=== PATIENT | male | born 1995 | race Caucasian/White ===

== ENCOUNTER → 2018-07-21 | Outpatient (CLI) | payer BC, SELFPAY ==
--- NOTE | 2018-07-21 11:58 | CT_ITS ---
STUDY: CT ABDOMEN AND PELVIS WITH CONTRAST REASON FOR EXAM: Male, 23 years old. 4 day history of a lower pelvic pain. RADIATION DOSAGE (If Supplied By Facility): CTDIvol = ( 10.39 ) mGy, DLP = ( 574.93 ) mGycm TECHNIQUE: Transaxial images were obtained from the dome of the diaphragm to the symphysis pubis with oral contrast. 100 IV/Oral Isovue 300 was administered. Sagittal and coronal images were reconstructed. Individualized dose optimization techniques were used for this CT. COMPARISON: Comparison is made with prior study dated January 06, 2016. FINDINGS: The visualized lung bases are unremarkable. The visualized portions of the heart are within normal limits. Normal liver. Normal gallbladder and extrahepatic biliary system. Normal spleen. Normal pancreas. Normal bilateral adrenal glands. Normal right kidney. Normal left kidney. Normal visualized stomach. Normal small intestine. Normal colon. There are surgical clips in the region of the appendix consistent with a prior appendectomy. Normal abdominal aorta. Normal inferior vena cava. Normal retroperitoneum. Normal urinary bladder. Inhomogeneous appearance of the seminal vesicles bilaterally. Clinical correlation is recommended. Normal abdominal wall. Normal osseous structures. CT/Abdomen/Pelvis WITH Contrast IMPRESSION: Inhomogeneous appearance of the seminal vesicles bilaterally. Clinical correlation is recommended. Electronically Signed: Harish Escalante, at 14:16 EDT , Service support ,
[2018-07-21 12:54] LABS: Absolute Lymphocyte Count 1.64 X10^3/ul (0.83-4.51); Basophil# 0.02 X10^3/uL; Basophil% 0.3 % (0-1); Eosinophil# 0.22 X10^3/uL; Eosinophils% 3.4 % (0-5); Hematocrit 50.4 % (40-54); Lymphocyte # 1.64 X10^3/ul (4.0); Lymphocyte % 25.3 % (19-41); Mean Corp Hgb Conc 33.7 g/gl (32-36); Mean Corpuscular Hgb 30.2 pg (27.0-32.0); Mean Corpuscular Volume 89.7 fL (80-94); Mean Platelet Vol. 9.7 fl (6.2-12.0); Monocyte# 0.61 X10^3/uL; Monocyte% 9.4 % (0-10); Neutrophil # 3.96 X10^3/uL (2.7-7.7); Neutrophil % 61.1 % (47-70); Platelet Count 262 K/mm3 (150-450); RBC Distribution Width CV 12.8 % (11.6-14.6); RBC Distribution Width SD 42.1 fl (35.1-43.9); Red Blood Count 5.62 M/mm3 (4.6-6.2); White Blood Count 6.5 K/mm3 (4.4-11.0)
[2018-07-21 12:55] LABS: POSITIVE COUNT NO; POSITIVE DIFFERENTIAL NO; POSITIVE MORPHOLOGY NO
== END | disposition home or self-care (01) ==
PROVIDERS: Family Provider Family Medicine; PCP Family Medicine; Referring Provider Family Medicine; Visit Provider Family Medicine
DX: R10.9 Unspecified abdominal pain (principal)
CPT/HCPCS: 36415; 74177; 85025; Q9967

== ENCOUNTER 2019-02-15 17:58 | Emergency (ER) | payer BC, SELFPAY ==
[2019-02-15 17:59] VITALS: BP 141/80; PULSE 138; RESP 18; TEMP 36.7; O2SAT 96; BMI 26.5
[2019-02-15 18:56] VITALS: RESP 16
[2019-02-15 18:59] LABS: Mucous, Urine 0 SEEN /hpf (<or=2+); Red Blood Cells-Urine 0 SEEN /hpf (0-5); Squamous Epithelial Cells - UA 0 SEEN /hpf (0-5); White Blood Cells 0 SEEN /hpf (0-5)
--- NOTE | 2019-02-15 19:17 | CT_ITS ---
STUDY: CT ABDOMEN AND PELVIS WITHOUT CONTRAST REASON FOR EXAM: Male, 24 years old. Diffuse abdominal pain RADIATION DOSAGE (If Supplied By Facility): CTDIvol = ( 6.95 ) mGy, DLP = ( 387.07 ) mGycm TECHNIQUE: Transaxial images were obtained from the dome of the diaphragm to the symphysis pubis without oral contrast, and without intravenous contrast. Sagittal and coronal images were reconstructed. Individualized dose optimization techniques were used for this CT. COMPARISON: Prior study of 07/21/2018 FINDINGS: There is a 3 mm nodule of the right lower lobe image 5 series 2, stable in the interval. There is a pleural-based 4 mm nodule of the left lingula, image 7 series 2, stable in the interval. There is a 4 mm nodule of the left lower lobe, also image 7 series 2, new in the interval. The visualized portions of the heart are within normal limits. Normal liver. Normal gallbladder and extrahepatic biliary system. Normal spleen. Normal pancreas. Normal bilateral adrenal glands. Normal right kidney. Normal left kidney. Normal visualized stomach. Normal small intestine. Normal colon. There are surgical clips in the region of the appendix consistent with a prior appendectomy. Normal abdominal aorta. Normal inferior vena cava. Normal retroperitoneum. Normal urinary bladder. There is a small umbilical hernia containing fat. Normal osseous structures. CT/Abdomen/Pelvis without Cont IMPRESSION: 1. Status post appendectomy. 2. Bilateral pulmonary nodules as detailed above, several of which are stable in the interval and one of which is new in the interval. Appropriate follow-up. Using Fleischner Society criteria is recommended. 3. Small fat-containing of helical hernia. 4. There is no evidence of free intra-abdominal or intrapelvic air, fluid, or inflammatory process. Electronically Signed: Gabe Danielson MD at 19:59 EST , Service support ,
[2019-02-15] MEDS: Ondansetron 4 MG/2 ML Vial IV (19:24)
[2019-02-15] MEDS: 0.9% Normal Saline 1,000 ML 1000 ML IV (19:24)
[2019-02-15] MEDS: Morphine 4 MG/ML Syringe IV (19:25)
[2019-02-15 19:37] LABS: Absolute Neutrophil Count 9.6 X10^3/uL (2.0-7.7); Basophil# 0.02 X10^3/uL; Basophil% 0.2 % (0-1); Eosinophil# 0.02 X10^3/uL; Eosinophils% 0.2 % (0-5); Hematocrit 45.4 % (40-54); Hemoglobin 15.8 g/dL (13.0-16.5); Lymphocyte % 3.8 % (19-41); Mean Corp Hgb Conc 34.8 g/dL (32-36); Mean Corpuscular Hgb 29.5 pg (27.0-32.0); Mean Corpuscular Volume 84.9 fL (80-94); Mean Platelet Vol. 9.5 fl (6.2-12.0); Monocyte# 0.46 X10^3/uL; Monocyte% 4.4 % (0-10); NRBC Flagged by Analyzer 0 % (0-5); Neutrophil # 9.62 X10^3/uL (2.7-7.7); Neutrophil % 90.9 % (47-70); POSITIVE DIFFERENTIAL YES; Platelet Count 251 K/mm3 (150-450); RBC Distribution Width CV 11.9 % (11.6-14.6); RBC Distribution Width SD 36.1 fl (35.1-43.9); Red Blood Count 5.35 M/mm3 (4.6-6.2); White Blood Count 10.6 K/mm3 (4.4-11.0)
[2019-02-15 19:38] LABS: Differential Indicated SCAN CRITERIA MET
[2019-02-15 19:47] LABS: Color, Urine YELLOW (Yellow); Glucose, Dipstick Normal (Normal); Urine Clarity Clear (Clear)
[2019-02-15 19:48] LABS: Ketone-Dipstick Negative (Negative); Nitrite-Dipstick Negative (Negative); Urine Bilirubin Dipstick Negative (Negative)
[2019-02-15 19:49] LABS: Bacteria 1+ /hpf (None Seen)
[2019-02-15 20:01] LABS: Protein-Dipstick 15 mg/dl (Negative); Specific Gravity, Urine 1.025 (1.002-1.030)
[2019-02-15 20:02] LABS: Leukocyte Esterase-Dipstick Negative /ul (Negative); Occult Blood-Urine 150 /ul (Negative); Urine Urobilinogen Normal (Normal)
[2019-02-15 20:08] LABS: AST(SGOT) 21 U/L (15-37); Alanine Aminotransfer ALT/SGPT 41 U/L (16-61); Albumin, Serum 4.3 g/dL (3.2-5.0); Alkaline Phosphatase 38 U/L (45-117); Anion Gap 9 (5-15); BUN 17 mg/dL (7-18); BUN/Creat Ratio 17.5 RATIO (10-20); Bilirubin, Direct 0.18 mg/dL (0.00-0.30); Calcium,Total 9.2 mg/dL (8.5-10.1); Chloride 105 mmol/L (98-107); Creatinine, Serum 0.97 mg/dL (0.70-1.30); EST Glomerular Filtration Rate 101 mL/min (>60); Est Glom Filt Rate - Afr Amer 122 mL/min (>60); Estimated Creatinine Clearance 117.43 ml/min; Globulin 3.5 g/dL (2.2-4.2); Glucose 118 mg/dL (74-106); Lipase 78 U/L (73-393); Potassium 3.9 mmol/L (3.5-5.1); Protein, Total 7.8 g/dL (6.4-8.2); Sodium Level 138 mmol/L (136-145)
[2019-02-15 20:11] LABS: Differential Comment SCANNED; Platelet Estimate ADEQUATE (ADEQ); Red Cell Morphology NORM C+C NORMAL (NORM C&C)
[2019-02-15 20:41] VITALS: BP 153/83; PULSE 110; RESP 16
[2019-02-15] MEDS: 0.9% Normal Saline 1,000 ML 999 ML IV (20:46)
--- NOTE | 2019-02-15 20:49 | ED.DCSUM_ITS ---
- ER Visit Summary Date of Service: 02/15/19 Chief Complaint: Abdominal pain History of Present Illness: The patient is a [address] Alcantar. He reports that he has abdominal pain that began at 930 this morning is gradually gotten worse. Is a diffuse cramping pain that stated 10 at worst and 5-10 cu rrently. Is worsened by movement or drinking. Is relieved by sitting up straight or standing up. Is had nausea and vomited once. No blood in his emesis. His last bowel was today. No diarrhea. No melena medication. Does report he had dysuria and frequency today. He denies any hematuria. Physical Examination: Vitals: Stable. Afebrile. General: Well-nourished and well-developed. Head: Normocephalic atraumatic. Neck: Supple, no lymphadenopathy. No JVD. Nontender. Cardiovascular: Regular rate and rhythm. No murmurs. Respiratory: No respiratory distress. Clear to auscultation bilaterally. Abdominal: Soft, diffuse mild tenderness to palpation, nondistended, normal bowel sounds. No guarding, rebound, or peritoneal signs. Back: Mild diffuse tenderness palpation over the lumbar spine and the paraspinous muscular and lumbar region bilaterally. Extremities: Nontender, no edema. Skin: Normal color, no rash. Neurologic: Alert and oriented ?3. Cranial nerves II through XII are intact. Normal strength and sensation. Psych: Normal affect. Test Results: CBC shows segmented neutrophils of 91 lymphs at 4. Chem-7 shows a glucose 118. LFTs show total bili 1.4, alk phos of 38. Lipase is normal. UA is negative. Clinical Impression(s) from Imaging Studies Abdomen/Pelvis CT 02/15/19 19:17 IMPRESSION: 1. Status post appendectomy. 2. Bilateral pulmonary nodules as detailed above, several of which are stable in the interval and one of which is new in the interval. Appropriate follow-up. Using Fleischner Society criteria is recommended. 3. Small fat-containing of helical hernia. 4. There is no evidence of free intra-abdominal or intrapelvic air, fluid, or inflammatory process. Electronically Signed: Gabe Danielson MD at 19:59 EST , Service support , Emergency Department Course and Treatment: Patient had an IV placed. Is given a liter of normal saline. He was given Toradol and Zofran IV. He is resting more comfortably. Treatment Plan: Patient be discharged with Zofran. Instructed follow-up his primary care physician 1 to 2 days if not improving. Return to the emergency department for any worsening symptoms. Disposition: To home in improved and stable condition. Impression: 1. Abdominal pain, uncertain cause. This note was generated with [employer] dictation software. It may contain incorrect words, spelling, and punctuation that were not noted in review of the chart prior to signing ED Disposition - Plan for ED Patient: Disposition: Home or Assisted Living Instructions: ABDOMINAL PAIN, Unkown Cause, (Male) Prescriptions: Ondansetron [Zofran Odt] 4 mg PO Q8H PRN PRN #10 tab PRN Reason: Nausea Prescription Printed Referrals: Mc Sahu MD [Primary Care Provider] - 1-2 Days if not improving
[2019-02-15 21:49] VITALS: PULSE 110; RESP 16
== END 2019-02-15 21:49 | disposition home or self-care (01) ==
PROVIDERS: Emergency Provider Emergency Medicine; Family Provider Family Medicine; PCP Family Medicine
DX: R10.9 Unspecified abdominal pain (principal); R30.0 Dysuria; R35.0 Frequency of micturition; R91.8 Other nonspecific abnormal finding of lung field; K46.9 Unspecified abdominal hernia without obstruction or gangrene
CPT/HCPCS: 74176; 80048; 80076; 81001; 83690; 85025; 96361; 96374; 96375; 99284; J7030; A4216; J2405

== ENCOUNTER 2020-01-25 16:00 | Emergency (ER) | payer BC, SELFPAY ==
[2020-01-25 16:01] VITALS: BP 133/83; PULSE 75; RESP 18; TEMP 36.2; O2SAT 99; BMI 26.4
--- NOTE | 2020-01-25 16:31 | CT_ITS ---
STUDY: CTA HEAD AND NECK WITH CONTRAST REASON FOR EXAM: Male, 24 years old. HEADACHE X 1 WEEK RADIATION DOSAGE (If Supplied By Facility): CTDIvol = ( 29.39 ) mGy, DLP = ( 1527.76 ) mGycm TECHNIQUE: CT angiography was performed with a multi-detector CT scanner. Data acquisition was obtained from the skull base through the vertex following intravenous administration of IV 100mL Isovue-370. MIP images were reconstructed from the axial data set. Post-processing of the angiographic images was performed, with multiplanar reformation and 3D reconstruction. Individualized dose optimization techniques were used for this CT. COMPARISON: No relevant priors. FINDINGS: There is no acute bleed or infarct. There is no hydrocephalus. Normal bilateral petrous carotid arteries. Normal right cavernous carotid artery with a normal supraclinoid bifurcation. Normal left cavernous carotid artery with a normal supraclinoid bifurcation. Normal right A1 segments of the anterior cerebral artery. Normal left A1 segments of the anterior cerebral artery. Normal intact anterior communicating artery (ACOM). Normal bilateral A2 segments of the anterior cerebral arteries. Normal right M1 and M2 segments of the middle cerebral arteries, with a normal M1 bifurcation. Normal left M1 and M2 segments of the middle cerebral arteries, with a normal M1 bifurcation. Normal right posterior communicating artery (PCOM). Normal left posterior communicating artery (PCOM). Normal bilateral vertebral arteries. Normal basilar artery with a normal basilar bifurcation. The visualized bilateral superior cerebellar (SCA) arteries are normal. Normal bilateral P1, P2 and visualized P3 segments of the posterior cerebral arteries. There is no demonstrated aneurysm of the [place]. There is no demonstrated abnormality of the visualized brain. AORTIC ARCH: Normal visualized aortic arch. Normal origins of the brachiocephalic, left common carotid, and left subclavian arteries. RIGHT CAROTID ARTERIES: Normal right common carotid artery (CCA). Normal right common carotid bulb. Normal origin of the right internal carotid (ICA) artery without a hemodynamically significant stenosis. Normal visualized cervical portion of the right internal carotid artery. Normal origin of the right external carotid artery (ECA). LEFT CAROTID ARTERIES: Normal left common carotid artery (CCA). Normal left common carotid bulb. Normal origin of the left internal carotid (ICA) artery without a hemodynamically significant stenosis. Normal visualized cervical portion of the left internal carotid artery. Normal origin of the left external carotid artery (ECA). VERTEBRAL ARTERIES: Normal bilateral vertebral arteries. CT/CTA Head AND Neck W/ Contrast IMPRESSION: No acute intracranial abnormality. Normal CTA Head and neck with contrast. Electronically Signed: Glen Gabriel, at 17:39 EST Tel , Service support ,
--- NOTE | 2020-01-25 16:33 | ED.VISSUMM ---
- ER Visit Summary Date of Service: 01/25/20 Chief Complaint: Headache History of Present Illness: The patient is a 24 M presenting with headache x1 week. Patient states that this has been constant but waxing and waning over the past 1 week. He has tried Tylenol and Excedrin at home. He has nausea with no vomiting. He denies fever. He complains of intermittent dizziness and lightheadedness. Denies syncope. He states he has a remote history of vertigo but has not experienced vertigo recently. He was seen by his primary care physician today and sent to the ED for further evaluation. Physical Examination: Vitals are stable. Patient is afebrile. Alert no acute distress. HEENT exam is unremarkable. Neck is supple. No meningismus Lungs are clear and equal bilaterally. Heart is regular rate and rhythm. Abdomen is soft nontender nondistended. Extremities are unremarkable. Skin is warm and dry. No focal neurologic deficit. Remainder of exam is unremarkable. Emergency Department Course and Treatment: Patient was given Reglan, Benadryl IV. CTA head and neck shows no acute intracranial abnormality. Normal CTA Head and neck with contrast. On reevaluation, patient is resting comfortably. He declines further medications. He is given prescription for Naprosyn. Advised to follow-up with his primary care physician. Advised return to the ED for worsening complaints. Disposition: Discharge home Impression: Headache This note was generated with [employer] dictation software. It may contain incorrect words, spelling, and punctuation that were not noted in review of the chart prior to signing ED Disposition - Plan for ED Patient: Instructions: ED Headache Unspecified Prescriptions: Naproxen [Naprosyn] 500 mg PO BID PRN #20 tab Prescription Printed Referrals: Mc Sahu MD [Primary Care Provider] -
[2020-01-25] MEDS: DiphenhydrAMINE 50 MG/ML Syringe 25 MG IV (16:59)
[2020-01-25] MEDS: Metoclopramide 10 MG/2 ML Vial 5 MG IV (16:59)
--- NOTE | 2020-01-25 17:56 | ED.DEP ---
ED Disposition - Plan for ED Patient: Instructions: ED Headache Unspecified Referrals: Mc Sahu MD [Primary Care Provider] -
--- NOTE | 2020-01-25 17:57 | ED.DEP ---
ED Disposition - Plan for ED Patient: Instructions: ED Headache Unspecified Prescriptions: Naproxen [Naprosyn] 500 mg PO BID PRN #20 tab Prescription Printed Referrals: Mc Sahu MD [Primary Care Provider] -
[2020-01-25 18:06] VITALS: BP 124/74; PULSE 68; RESP 15; O2SAT 98
== END 2020-01-25 18:11 | disposition home or self-care (01) ==
PROVIDERS: Emergency Provider Emergency Medicine; PCP Family Medicine
DX: R51.9 Headache, unspecified (principal); R11.0 Nausea; R42 Dizziness and giddiness
CPT/HCPCS: 70496; 70498; 96374; 96375; 99283; Q9967; A4216

== ENCOUNTER 2020-11-06 20:16 | Emergency (ER) | payer SELFPAY ==
[2020-11-06 20:17] VITALS: BP 127/87; PULSE 58; RESP 16; TEMP 36.6; O2SAT 97; BMI 24.3
--- NOTE | 2020-11-06 21:09 | ED.RN ---
pt comes up to triage desk from waiting room and states i dont to wait around this long for a test. LWBS at [phone]
== END 2020-11-06 21:08 | disposition left against medical advice (07) ==
LOC: ED 21:22
PROVIDERS: PCP Family Medicine
DX: Z53.21 Procedure and treatment not carried out due to patient leaving prior to being seen by health care provider (principal)

== ENCOUNTER 2020-11-08 01:35 | Emergency (ER) | payer BC, SELFPAY ==
[2020-11-08 01:36] VITALS: BP 153/97; PULSE 75; RESP 16; TEMP 36.4; O2SAT 98; BMI 25.0
--- NOTE | 2020-11-08 02:09 | EKG12_ITS ---
Test Reason : GEN ILL Blood Pressure : / mmHG Vent. Rate : 066 BPM Atrial Rate : 066 BPM P-R Int : 132 ms QRS Dur : 090 ms QT Int : 368 ms P-R-T Axes : 023 040 024 degrees QTc Int : 385 ms Normal sinus rhythm Normal ECG Confirmed by UMESH SANTILLAN, NIKOLAS ([id number]), editor newspaper [employer] ([id number]) on 11/09/2020 9:17:39 AM Referred By: TL Confirmed By:NIKOLAS CALVO MD
--- NOTE | 2020-11-08 03:20 | CT_ITS ---
STUDY: CT BRAIN WITHOUT CONTRAST REASON FOR EXAM: Male, 25 years old. Headache RADIATION DOSAGE (If Supplied By Facility): CTDIvol = ( 44.99 ) mGy, DLP = ( 829.85 ) mGycm TECHNIQUE: Transaxial CT imaging of the brain was performed without administration of intravenous contrast material. Individualized dose optimization techniques were used for this CT. COMPARISON: No relevant priors. FINDINGS: Normal soft tissue structures. Normal calvarium. Normal size ventricles and extra-axial spaces for the patient''s age. Normal white matter tracts of the cerebral hemispheres. Normal basal ganglia and thalami. Normal brainstem. Normal cerebellum. There is no intracranial hemorrhage. There are no findings of an acute ischemic infarction. Normal visualized paranasal sinuses. CT/Brain/Head without Contrast IMPRESSION: Normal unenhanced CT scan of the brain. Electronically Signed: Darien Dunbar MD at 4:21 EDT Tel , Service support ,
[2020-11-08 03:36] VITALS: PULSE 60; RESP 15; O2SAT 98
--- NOTE | 2020-11-08 04:31 | EX.ED.DYSGE1 ---
HPI History of Present Illness Chief Complaint: General Illness Informant: patient Narrative Narrative: 2-day history of congestion feeling fogginess with nausea. No vomiting or diarrhea. No cough. Denies any loss of taste or smell. Not Covid vaccinated. Today's reported lightheaded symptoms. No chest pains or shortness of breath. Reports saw PCP yesterday has Covid send out that is still is pending. No urinary symptoms. PFSH PFS Medical History Pilonidal cyst Home Medications NK 01/05/20 [History Last Taken Unknown] Allergy/AdvReac Type Severity Reaction Status Date / Time No Known Allergies Allergy Verified 11/08/20 01:40 Family History Father No problems noted. Surgical History History of appendectomy History of foot surgery History of wisdom tooth extraction Social History Smoking Status: Never smoker ROS ROS ED Constitutional Constitutional ED: Denies chills, fever(s) or sweats Eyes Eyes: Denies change in vision ENT ENT ED: Denies dysphagia or sore throat Cardiovascular Cardiovascular: Denies chest pain, leg edema, palpitations or racing heartbeat Respiratory/Chest Respiratory/Chest: Denies cough, dyspnea or dyspnea on exertion Gastrointestinal Gastrointestinal: Reports diarrhea and nausea; Denies abdominal pain or vomiting Genitourinary Genitourinary ED: Denies dysuria, hematuria or urinary frequency Musculoskeletal Musculoskeletal: Denies back pain, extremity pain or neck pain Integumentary Denies rash or wounds Neurologic Neurologic: Reports headache(s); Denies paresthesias or weakness EXAM Physical Exam Const Vital Signs: 11/08/20 01:36 11/08/20 01:41 11/08/20 03:36 Temperature 97.6 F L Temperature Source Oral Pulse Rate 75 60 Respiratory Rate 16 15 Respiratory Effort Normal Non-Labored Respiratory Pattern Normal Blood Pressure 153/97 H Blood Pressure Mean 115 Pulse Ox 98 98 Oxygen Delivery Method Room Air Room Air Positive well nourished and well developed General Appearance ED: well developed and NAD HEENT Reports moist mucous membranes normocephalic and atraumatic Eyes PERRL, EOMs intact bilaterally and conjunctivae normal General Eye ED: Yes normal appearance of both eyes Neck no lymphadenopathy and supple General: Negative for tenderness Chest Wall Chest: Negative for tenderness Resp normal respiratory effort and normal air movement Effort and Inspection: symmetric chest movement; Negative for respiratory distress Cardio regular rate, regular rhythm and no murmurs Peripheral Pulses: pulses 2+ throughout GI normal to inspection, nondistended, normoactive bowel sounds and non-tender Palpation: Negative for guarding or rebound tenderness present Back/Spine no CVA tenderness and no thoracic nor lumbar tenderness Extremity normal to inspection General Extremety ED: Negative for edema or tenderness General Extremity: Negative for edema Neuro oriented x3 and no sensory deficits noted Sensorium / Orientation: awake and alert Skin no rashes or lesions noted and no wounds MDM MDM MDM Narrative Medical decision making narrative: Patient presenting with congestion headache diarrhea. Discussed could be early Covid symptoms. Rapid Covid obtained negative. EKG with lightheaded symptoms showed early repolarization. Patient does have a PCR test sent out pending from yesterday. Discussed rechecking for which he states he will wait. They were concerned with his fogginess requested head CT. This was obtained and negative. He had no meningismus. Discussed monitoring for new symptoms. He will use Tylenol Motrin. Return precautions discussed. They do have a pulse ox at home. All questions answered. Patient is being discharged under pandemic conditions under declared global, national and state disaster activation, with limited medical resources. Patient and community understands this. Results discussed in layman's terms to the patient satisfaction. All questions answered in layman's terms. Patient understands importance of follow-up care as directed. Patient has been instructed to return to the ED immediately if new symptoms, problems, or questions occur. We mutually agree with the plan of disposition. The patient understand that they may call or return with any questions or concerns at any time. Radiography Diagnostic Testing: Radiology Impression Brain CT 11/08/20 03:20 IMPRESSION: Normal unenhanced CT scan of the brain. Electronically Signed: Darien Dunbar MD at 4:21 EDT Tel , Service support , EKG Initial EKG: Attestation: I personally reviewed and interpreted this EKG as follows: Comments: Sinus rate of 66, early repolarization noted. Isolated T wave version leads III. Nonspecific. QTc 385. Discharge Plan Triage Chief Complaint: General Illness ED Provider: Sammy Jett Dx/Rx/DC Orders Clinical Impression: Suspected 2019-nCoV infection, Diarrhea, Headache Instructions: Coronavirus Disease 2019 (COVID-19): Overview Prescriptions: No Action NK RF: 0 Primary Care Provider: Mc Sahu Referrals: Mc Sahu MD [Primary Care Provider] - 3-5 Days if not improving Disposition Disposition: Home, Self Care
[2020-11-08 04:42] VITALS: BP 113/66; PULSE 61; RESP 12; O2SAT 99
== END 2020-11-08 04:50 | disposition home or self-care (01) ==
PROVIDERS: Emergency Provider Emergency Medicine; PCP Family Medicine
DX: R19.7 Diarrhea, unspecified (principal); R51.9 Headache, unspecified; R11.0 Nausea
CPT/HCPCS: 70450; 87426; 93005; 99282; A4216

== ENCOUNTER → 2021-01-22 17:09 | Outpatient (CLI) | payer BC, SELFPAY | PROVIDERS: PCP Family Medicine; Visit Provider Family Medicine | DX: U07.1 COVID-19 (principal) | CPT/HCPCS: 87635; U0005; U0003 ==